=== PATIENT | female | born 1945 | race Caucasian/White ===

== ENCOUNTER 2016-08-29 01:09 | Emergency (ER) | payer OTHER ==
[~2016-08-29] VITALS: Ht 167.6 cm; Wt 113.4 kg
--- NOTE | 2016-08-29 01:28 | NUR ---
PT A/OX4 BREATHING EFFORTLESSLY ON ROOM AIR, PT STATES SHE HAS BEEN HVAING BILATERAL LOWER EXTREMITY SWELLING AND NUMBNESS IN HER FEET AND PAIN IN BOTH OF HER CALVES, PT IS ON THE MONITOR, LAB IN ROOM TO DRAW, IV PLACED, MADE AWARE WILL CONTINUE TO MONITOR.
[2016-08-29 01:48] LABS: BASOPHILS % (AUTO) 0.4 % (0.0-2.0); EOSINOPHILS # (AUTO) 0.1 /CMM (0.0-0.7); EOSINOPHILS % (AUTO) 1.5 % (0.0-6.0); HEMATOCRIT 38 % (33-45); HEMOGLOBIN 12.9 g/dL (11.5-14.8); LYMPHOCYTES # (AUTO) 2.2 /CMM (0.8-4.8); MEAN CORPUSCULAR HEMOGLOBIN 29 PG (26.0-33.0); MEAN CORPUSCULAR HGB CONC 35 g/dl (31.0-36.0); MEAN CORPUSCULAR VOLUME 84 fL (82-100); MONOCYTES # (AUTO) 0.4 /CMM (0.1-1.30); NEUTROPHILS # (AUTO) 5.3 /CMM (1.8-8.9); NEUTROPHILS % (AUTO) 66.1 % (43.0-81.0); PLATELET COUNT (AUTO) 181 /CMM (150-450); RDW COEFFICIENT OF VARIATION 13.7 (11.5-15.0); RED BLOOD CELL COUNT(AUTO) 4.49 MIL/uL (4.0-5.2)
[2016-08-29 02:00] LABS: CALCIUM, SERUM 8.7 mg/dL (8.5-10.1); CARBON DIOXIDE 26 mmol/L (21-32); CHLORIDE 100 mmol/L (98-107); CREATININE 0.8 mg/dL (0.6-1.3); GLUCOSE 259 mg/dL (74-106); POTASSIUM 3.8 mmol/L (3.5-5.1); SODIUM SERUM 136 mmol/L (136-145); UREA NITROGEN, BLOOD 13 mg/dL (7-18)
[2016-08-29 02:08] LABS: TROPONIN I 0.021 ng/mL (0.00-0.056)
[2016-08-29 02:09] LABS: INR 0.91 (0.87-1.13); PROTHROMBIN TIME 9.7 SECS (9.5-12.7)
[2016-08-29 02:13] LABS: ALANINE AMINOTRANSFERASE 21 U/L (12-78); ALBUMIN 3.3 g/dL (3.4-5.0); ALKALINE PHOSPHATASE 81 U/L (46-116); ASPARTATE AMINOTRANSFERASE 15 U/L (15-37); B-TYPE NATRIURETIC PEPTIDE 124 PG/ML (0-125); BILIRUBIN,DIRECT 0.1 mg/dL (0.0-0.2); BILIRUBIN,TOTAL 0.3 mg/dL (0.2-1.0); TOTAL PROTEIN, SERUM 6.8 g/dL (6.4-8.2)
--- NOTE | 2016-08-29 04:04 | NUR ---
Patient discharged to home in stable condition. Written and verbal after care instructions given. Patient verbalizes understanding of instruction.IV removed. Catheter intact and site benign. Pressure and 4x4 applied to site. No bleeding noted.
[2016-08-29 04:05] VITALS: BP 150/97
== END 2016-08-29 04:08 | disposition home or self-care (01) ==
LOC: ER 01:12
DX: R60.0 Localized edema (principal); Z88.6 Allergy status to analgesic agent; J45.909 Unspecified asthma, uncomplicated; Z86.73 Personal history of transient ischemic attack (TIA), and cerebral infarction without residual deficits; Z95.0 Presence of cardiac pacemaker; R20.0 Anesthesia of skin; Z88.2 Allergy status to sulfonamides; Z88.8 Allergy status to other drugs, medicaments and biological substances; Z88.5 Allergy status to narcotic agent; G62.9 Polyneuropathy, unspecified
CPT/HCPCS: 36415; 71010; 80048; 80076; 83605 ×2; 83880; 84484; 85025; 85730; 87040 ×2; 87081; 93005; 93970; 99285; A4606; Z7610

== ENCOUNTER 2018-03-27 13:49 | Inpatient (IN) | payer MEDICARE, OTHER ==
[~2018-03-27] VITALS: Ht 157.5 cm; Wt 122.0 kg
--- NOTE | 2018-03-27 14:18 | NUR ---
PT BIB FRIEND, GLF, FELL FORWARD W/ FACIAL INJURY, NOMAN RIB & KNEE PAIN. -KO, PT IS AAOX4, NOT IN RESPIRATORY DISTRESS, V/S STABLE, KEPT RESTED AND COMFORTABLE.
--- NOTE | 2018-03-27 14:32 | NUR ---
SEEN AND EXAMINED BY DR. PÉREZ.
--- NOTE | 2018-03-27 14:54 | NUR ---
PHLEB AT BEDSIDE FOR BLOOD DRAW.
--- NOTE | 2018-03-27 15:00 | NUR ---
RADIOLOGY AT BEDSIDE FOR XRAY.
[2018-03-27 15:25] LABS: BASOPHILS # (AUTO) 0.1 /CMM (0.0-0.2); BASOPHILS % (AUTO) 0.6 % (0.0-2.0); EOSINOPHILS % (AUTO) 1.3 % (0.0-6.0); HEMATOCRIT 44 % (33-45); HEMOGLOBIN 14.5 g/dL (11.5-14.8); LYMPHOCYTES # (AUTO) 2.6 /CMM (0.8-4.8); LYMPHOCYTES % (AUTO) 27.1 % (20.0-44.0); MEAN CORPUSCULAR HGB CONC 33 g/dl (31.0-36.0); MEAN CORPUSCULAR VOLUME 86 fL (82-100); MONOCYTES # (AUTO) 0.6 /CMM (0.1-1.30); NEUTROPHILS # (AUTO) 6.1 /CMM (1.8-8.9); PLATELET COUNT (AUTO) 194 /CMM (150-450); RED BLOOD CELL COUNT(AUTO) 5.06 MIL/uL (4.0-5.2); WHITE BLOOD COUNT (AUTO) 9.5 K/uL (4.3-11.0)
[2018-03-27 15:29] LABS: ALANINE AMINOTRANSFERASE 21 U/L (12-78); ALBUMIN 3.2 g/dL (3.4-5.0); ALKALINE PHOSPHATASE 86 U/L (46-116); ASPARTATE AMINOTRANSFERASE 17 U/L (15-37); BILIRUBIN,DIRECT 0.1 mg/dL (0.0-0.2); BILIRUBIN,TOTAL 0.3 mg/dL (0.2-1.0); CALCIUM, SERUM 9.6 mg/dL (8.5-10.1); CARBON DIOXIDE 26 mmol/L (21-32); CHLORIDE 104 mmol/L (98-107); CREATININE 0.7 mg/dL (0.6-1.3); GLUCOSE 263 mg/dL (74-106); POTASSIUM 4.2 mmol/L (3.5-5.1); SODIUM SERUM 139 mmol/L (136-145); TOTAL PROTEIN, SERUM 7.1 g/dL (6.4-8.2); UREA NITROGEN, BLOOD 21 mg/dL (7-18)
[2018-03-27 15:49] LABS: APPEARANCE,URINE Clear (CLEAR); BILIRUBIN,URINE Negative (NEGATIVE); BLOOD, URINE Negative Ery/uL (NEGATIVE); COLOR,URINE Yellow (YELLOW); KETONES,URINE Trace (NEGATIVE); LEUKOCYTE ESTERASE ,URINE Negative (NEGATIVE); NITRITE, URINE Negative (NEGATIVE); PROTEIN,URINE 30 mg/dl (NEGATIVE); UGLUCOSE 100 MG/DL mg/dL (NEGATIVE); UROBILINOGEN,URINE 0.2 EU/dL (0.2)
[2018-03-27 15:59] LABS: BACTERIA,URINE 1+ /HPF (None Seen); SQUAMOUS EPITHELIAL CELL,UR Moderate /HPF (None Seen)
[2018-03-27] MEDS ORDERED: IV NS 0.9% 1,000 ML IV PRN (17:10)
[2018-03-27] MEDS ORDERED: CLONIDINE HCL 0.1 MG TABLET ONE (17:29)
[2018-03-27] MEDS ORDERED: MAGNESIUM HYDROXIDE 30 ML UDC PO PRN (17:30)
[2018-03-27] MEDS ORDERED: INSULIN REGULAR, HUMAN 100 UNIT/ML 3 ML VIAL SQ PRN (17:30)
[2018-03-27] MEDS ORDERED: Z GUARD REMEDY 2 OZ OINT TP PRN (17:30)
[2018-03-27] MEDS ORDERED: MAG HYDROX/AL HYDROX/SIMETH 30 ML UDC PO PRN (17:30)
[2018-03-27] MEDS ORDERED: ONDANSETRON HCL/PF 4 MG/2 ML VIAL IVP PRN (17:30)
[2018-03-27] MEDS: BLOOD SUGAR DIAGNOSTIC 1 EACH STRIP VI SCH ×2 (17:30→22:23)
[2018-03-27] MEDS ORDERED: *INSULIN REGULAR(HUMULIN R)HUM 100 UNIT/ML VIAL SQ PRN (17:30)
[2018-03-27] MEDS ORDERED: DEXTROSE 50%-WATER 50 ML DISP.SYRIN IV PRN (17:30)
[2018-03-27] MEDS ORDERED: CLONIDINE HCL 0.1 MG TABLET PO ONE (17:30)
--- NOTE | 2018-03-27 17:48 | NUR ---
PICC LINE NURSE AT BEDSIDE.
--- NOTE | 2018-03-27 17:55 | NUR ---
ADMIT TO 320-1 TELE DX HYPERTENSION, TIA ACCEPTING: [facility] KIM
[2018-03-27 18:07] LABS: THYROID STIMULATING HORMONE 2.362 uIU/mL (0.358-3.74)
--- NOTE | 2018-03-27 18:28 | NUR ---
REPORT GIVEN TO HIGINIO CANSECO FOR MARKUS.
[2018-03-27] MEDS ORDERED: CARV12.52 PO (18:40)
[2018-03-27] MEDS ORDERED: LOSA1TAB39 PO (18:40)
[2018-03-27] MEDS ORDERED: ALBU18HF2 INH (18:40)
[2018-03-27] MEDS ORDERED: METF-442 PO (18:40)
[2018-03-27] MEDS ORDERED: AMLO10TA7 PO (18:40)
[2018-03-27] MEDS ORDERED: SITA100T PO (18:40)
[2018-03-27] MEDS ORDERED: FLUT12AE5 INH (19:02)
--- NOTE | 2018-03-27 19:30 | NUR ---
HIDE AND SKIN FLESHING MACHINE OPERATOR NOTE RECEIVED PT FROM ER, ARRIVED IN [facility]. FOUND PT IN BATHROOM, ASSISTED BY ER STAFF TO TOILET. A/OX4. NO S/S OF RESP DISTRESS, HOWEVER SOB PRESENT UPON EXERTION. PT HELPED BACK INTO BED, GAIT APPEARS WEAK/UNSTABLE. IV ACCESS LOCATED ON LANCE MIDLINE. SKIN APPEARS INTACT, NO PICTURES TAKEN. PT CURRENTLY REFUSING ALL NEEDLESTICK PROCEDURES. ADMISSION ORDERS RECEIVED. SAFETY MEASURES IN PLACE,C ALL LIGHT WITHIN REACH. WILL CONTINUE TO MONITOR.
[2018-03-27 20:00] VITALS: BP 108/87
[2018-03-27 20:47] VITALS: BP 108/87
--- NOTE | 2018-03-27 22:40 | NUR ---
RN NOTE PT CONTINUING TO REFUSE ALL NEEDLESTICK PROCEDURES. REFUSING INSULIN COVERAGE FOR HS ACCUCHECK WITH BS OF 355, NOTIFIED ON-CALL HOSPITALIST. TEACHING PERFORMED REGARDING RISKS OF TX NON-COMPLIANCE, PT VERBALIZES UNDERSTANDING AND CONTINUES TO REFUSE. PT REQUESTING BIPAP FOR SLEEP APNEA, TO BE USED WHEN SLEEPING. PT STATES THAT SHE IS UNAWARE OF WHAT HER BIPAP SETTINGS TYPICALLY ARE. WILL F/U WITH .
--- NOTE | 2018-03-27 23:43 | NUR ---
RN NOTES BIPAP ORDER RECEIVED. BIPAP INITIALIZED BY RT, PT CURRENTLY USING EQUIPMENT IN BED. DENIES PAIN, DISCOMFORT OR SOB. WILL CONTINUE TO MONITOR.
[2018-03-28] VITALS: BP 120/73
--- NOTE | 2018-03-28 01:00 | NUR ---
RN NOTES PT IN BED RESTING. PT HOWEVER HAS REMOVED BIPAP. REFUSE TO REAPPLY MASK DUE TO DISCOMFORT WHEN TRYING TO SLEEP. BIPAP MACHINE REMOVED AND PLACED IN RM 318, RT NOTIFIED. NC AT 3L PLACED ON PT FOR COMFORT. BREATHING UNLABORED, LUNG SOUNDS CLEAR UPON AUSCULTATION. O2 SAT WNL. WILL CONTINUE TO MONITOR.
[2018-03-28 04:00] VITALS: BP 135/70
--- NOTE | 2018-03-28 06:00 | NUR ---
RN CLOSING NOTE PT IN BED RESTING. NO S/S OF RESP DISTRESS/SOB. PT SLEEP TOTAL: 6 HOURS, INTERMITTENT PERIODS AWAKE TO USE BATHROOM. PT EDUCATED ON FALL RISKS AND POTENTIAL OF FALL UPON AMBULATION TO BR, RECOMMENDATION TO STAY IN BED, HOWEVER PT CONTINUES TO INSIST ON BRP. PT CONTINUES TO REFUSE ALL NEEDLESTICK PROCEDURES INCLUDING LABORATORY BLOOD DRAW AND INSULIN ADMIN, HOWEVER COMPLIANT WITH BS CHECK. SAFETY MEASURES IN PLACE, CALL LIGHT WITHIN REACH. WILL ENDORSE TO DAY SHIFT FOR MARKUS.
[2018-03-28] MEDS: BLOOD SUGAR DIAGNOSTIC 1 EACH STRIP VI SCH ×3 (06:47→17:27)
--- NOTE | 2018-03-28 07:40 | NUR ---
MS RN RECEIVED ON BED, AWAKE,ALERT,ORIENTED X4,NOT IN ANY FORM OF DISTRESS,RESPIRATIONS EVEN AND UNLABORED,NO SOB NOTED, LUNGS ARE CLEAR. ABDOMEN SOFT POSITIVE BOWEL SOUNDS, DENIES PAIN AT THIS TIME,ALL NEEDS ATTENDED.
[2018-03-28 08:00] VITALS: BP 156/82
--- NOTE | 2018-03-28 08:10 | NUR ---
MS SYLVESTER BREAKFAST SERVED,TOLERATED WELL, NO DUE MEDS AT THIS TIME.
[2018-03-28] MEDS ORDERED: ASPIRIN EC 325 MG TABLET.DR PO SCH ×2 (09:00)
[2018-03-28 09:13] LABS: BASOPHILS # (AUTO) 0.1 /CMM (0.0-0.2); BASOPHILS % (AUTO) 1.2 % (0.0-2.0); HEMATOCRIT 41 % (33-45); HEMOGLOBIN 13.7 g/dL (11.5-14.8); LYMPHOCYTES # (AUTO) 1.9 /CMM (0.8-4.8); LYMPHOCYTES % (AUTO) 27.3 % (20.0-44.0); MEAN CORPUSCULAR HGB CONC 34 g/dl (31.0-36.0); MEAN CORPUSCULAR VOLUME 87 fL (82-100); MONOCYTES # (AUTO) 0.4 /CMM (0.1-1.30); MONOCYTES % (AUTO) 5.9 % (2.0-12.0); NEUTROPHILS # (AUTO) 4.3 /CMM (1.8-8.9); NEUTROPHILS % (AUTO) 63.6 % (43.0-81.0); PLATELET COUNT (AUTO) 148 /CMM (150-450); RED BLOOD CELL COUNT(AUTO) 4.69 MIL/uL (4.0-5.2); WHITE BLOOD COUNT (AUTO) 6.8 K/uL (4.3-11.0)
--- NOTE | 2018-03-28 10:30 | NUR ---
MS RN WALKS W/ PT,TOLERATED WELL.
--- NOTE | 2018-03-28 12:30 | NUR ---
MS RN BS - 319 - REFUSED COVERAGE, NON COMPLIANT PATIENT.
[2018-03-28 13:15] LABS: CALCIUM, SERUM 9.4 mg/dL (8.5-10.1); CARBON DIOXIDE 25 mmol/L (21-32); CHLORIDE 103 mmol/L (98-107); CREATININE 0.8 mg/dL (0.6-1.3); GLUCOSE 261 mg/dL (74-106); POTASSIUM 4.6 mmol/L (3.5-5.1); SODIUM SERUM 141 mmol/L (136-145); UREA NITROGEN, BLOOD 20 mg/dL (7-18)
[2018-03-28 13:20] LABS: CHOLESTEROL 235 mg/dL (<200); HDL CHOLESTEROL 50 mg/dL (40-60); LDL 148 mg/dL (0-99); TRIGLYCERIDES 206 mg/dL (30-150)
[2018-03-28 16:00] VITALS: BP 149/78
--- NOTE | 2018-03-28 17:38 | NUR ---
MS RN BS - 214 - REFUSED COVERAGE,ALL NEEDS ATTENDED.
--- NOTE | 2018-03-28 18:14 | NUR ---
MS RN WAS SEEN BY DR. MARINELLI, WANTS TO GO AMA.
--- NOTE | 2018-03-28 20:06 | NUR ---
MS/RN NOTES RECEIVED PT. SITTING IN A CHAIR IN THE HALLWAY. PT. IS AWAKE, ALERT AND ORIENTED X3. BREATHING EVEN AND UNLABORED ON ROOM AIR. NO SOB, RESPIRATORY DISTRESS OR COMPLAINTS OF PAIN NOTED AT THIS TIME. PT. REFUSING VITAL SIGNS TO BE TAKEN STATING SHE IS LEAVING AND IS FINE AND IS GOING HOME. PER DAYSHIFT NURSE PT. IS LEAVING AMA. PAPERWORK SIGNED AND PLACED IN PT. CHART. DAYSHIFT NURSE COMPLETED EXIT CARE AND PT. BELONGINGS LIST ORIGINAL PLACED IN CHART AND COPY PROVIDED TO PT. PT. IS AWAITING PICKUP FROM SISTER ALYSSA. HIGINIO AUSTIN REMOVED PT. ID BAND AND PT. RIGHT UPPER ARM MIDLINE. NO BLEEDING OR S/S OF INFECTION NOTED. PT. LEFT THE FLOOR VIA WHEELCHAIR ESCORTED BY FAMILY MEMBERS AND ISAURA LYNCH. ALL PT. BELONGINGS PRESENT WITH PT. PT. LEFT IN STABLE CONDITION AND LEFT THE FLOOR AT 2005.
== END 2018-03-28 20:00 | disposition left against medical advice (07) | DRG 65 ==
LOC: ER 13:51 → TELE 18:32
PROVIDERS: ADMIT Internal Medicine; ATTEND Internal Medicine
PROC: 05H533Z Insertion of Infusion Device into Right Subclavian Vein, Percutaneous Approach (ICD-10-PCS; principal; 2018-03-28)
DX: I63.9 Cerebral infarction, unspecified (principal); Z68.42 Body mass index [BMI] 45.0-49.9, adult; E11.65 Type 2 diabetes mellitus with hyperglycemia; Z88.2 Allergy status to sulfonamides; E66.9 Obesity, unspecified; Z86.73 Personal history of transient ischemic attack (TIA), and cerebral infarction without residual deficits; J45.909 Unspecified asthma, uncomplicated; Z91.19 Patient's noncompliance with other medical treatment and regimen; I10 Essential (primary) hypertension; E78.5 Hyperlipidemia, unspecified; Z79.84 Long term (current) use of oral hypoglycemic drugs; K21.9 Gastro-esophageal reflux disease without esophagitis; I48.91 Unspecified atrial fibrillation; Z91.81 History of falling
CPT/HCPCS: 36415; 36569; 70450-TC; 71045-TC; 72125-TC; 73080-TC; 73090-TC; 73560-TC; 80048-TC; 80061-TC; 80076-TC; 80305; 81000-TC; 82962-TC; 83880; 84443-TC; 84484-TC; 85025-TC; 85652-TC; 85730-TC; 87081-TC; 92521; 92611-TC; 93307-TC; 93880-TC; G0378; J1815; J7030

== ENCOUNTER 2019-11-19 19:49 | Emergency (ER) | payer OTHER ==
[~2019-11-19] VITALS: Ht 157.5 cm; Wt 124.7 kg
[~2019-11-19 19:49] MED LIST: ALBU18HF2 INH; FLUT12AE5 INH
[2019-11-19 20:37] LABS: BASOPHILS # (AUTO) 0.1 /CMM (0.0-0.2); BASOPHILS % (AUTO) 0.6 % (0.0-2.0); EOSINOPHILS % (AUTO) 1.1 % (0.0-6.0); HEMATOCRIT 38 % (33-45); HEMOGLOBIN 12.9 g/dL (11.5-14.8); LYMPHOCYTES # (AUTO) 2.6 /CMM (0.8-4.8); LYMPHOCYTES % (AUTO) 27.4 % (20.0-44.0); MEAN CORPUSCULAR HGB CONC 34 g/dl (31.0-36.0); MEAN CORPUSCULAR VOLUME 87 fL (82-100); MONOCYTES # (AUTO) 0.5 /CMM (0.1-1.30); MONOCYTES % (AUTO) 5.6 % (2.0-12.0); NEUTROPHILS # (AUTO) 6.2 /CMM (1.8-8.9); NEUTROPHILS % (AUTO) 65.3 % (43.0-81.0); PLATELET COUNT (AUTO) 181 /CMM (150-450); RED BLOOD CELL COUNT(AUTO) 4.37 MIL/uL (4.0-5.2); WHITE BLOOD COUNT (AUTO) 9.4 K/uL (4.3-11.0)
[2019-11-19 20:49] LABS: CALCIUM, SERUM 9.7 mg/dL (8.5-10.1); CREATININE 0.8 mg/dL (0.6-1.3); POTASSIUM 4.2 mmol/L (3.5-5.1)
[2019-11-19 22:08] LABS: BILIRUBIN,TOTAL 0.5 mg/dL (0.2-1.0)
[2019-11-19 22:09] LABS: ALBUMIN 3.1 g/dL (3.4-5.0); BILIRUBIN,DIRECT 0.1 mg/dL (0.0-0.2); TOTAL PROTEIN, SERUM 6.9 g/dL (6.4-8.2)
--- NOTE | 2019-11-19 22:13 | NUR ---
PT REFUSES CATH, PT WALKED TO BATHROOM, UNABLE TO PROVIDE URINE SAMPLE AT THIS TIME.
--- NOTE | 2019-11-19 22:17 | NUR ---
CALLED DR ESCALERA, FIELD TRAINING AGENT [phone]. SPEAKING TO STORM WINDOW INSTALLER NOW.
--- NOTE | 2019-11-19 22:35 | NUR ---
CALLED [facility] [phone] AND SPOKE TO MAHIN TO START THE TRANSFER PROCESS. WILL BE IN TOUCH
--- NOTE | 2019-11-19 22:46 | NUR ---
FAXED FACESHEET AND CLINICALS TO [phone]
--- NOTE | 2019-11-19 22:48 | NUR ---
URINE COLLECTED AND SENT TO LAB
[2019-11-19 22:54] LABS: APPEARANCE,URINE Clear (CLEAR); BILIRUBIN,URINE Negative (NEGATIVE); BLOOD, URINE Trace-intact Ery/uL (NEGATIVE); COLOR,URINE Yellow (YELLOW); KETONES,URINE Negative (NEGATIVE); LEUKOCYTE ESTERASE ,URINE Negative (NEGATIVE); NITRITE, URINE Negative (NEGATIVE); PH,URINE 5.5 (5.0-8.0); PROTEIN,URINE Negative (NEGATIVE); UGLUCOSE Negative (NEGATIVE); UROBILINOGEN,URINE 0.2 EU/dL (0.2)
[2019-11-19 23:12] LABS: BACTERIA,URINE Few /HPF (None Seen); RBC,URINE 0-2 /HPF (0-2); SQUAMOUS EPITHELIAL CELL,UR Few /HPF (None Seen); WBC,URINE 0-2 /HPF (0-3)
--- NOTE | 2019-11-19 23:13 | NUR ---
PER MAHIN AT [facility], THERE ARE NO BEDS AVAILABLE, UNABLE TO TRANSFER
[2019-11-19] MEDS ORDERED: CLOPIDOGREL BISULFATE 75 MG TABLET ONE (23:39)
[2019-11-19] MEDS ORDERED: ASPIRIN EC 325 MG TABLET.DR PO ONE (23:39)
--- NOTE | 2019-11-19 23:47 | NUR ---
covid swab sent
[2019-11-19] MEDS ORDERED: ASPIRIN EC 81 MG TABLET.DR PO ONE (23:48)
[2019-11-19] MEDS: CLOPIDOGREL BISULFATE 75 MG TABLET PO ONE (23:52)
[2019-11-19] MEDS: ASPIRIN EC 81 MG TABLET.DR PO ONE (23:52)
--- NOTE | 2019-11-20 00:30 | NUR ---
ER TO CALL DR. VARGAS FOR MD TO REPORT. @ PT ACCEPTED AT [facility] ROOM # 204-A PHONE # FOR REPORT AUTH # FOR TRANSPORT [id number]
--- NOTE | 2019-11-20 00:30 | NUR ---
Nicky nuno in [facility] - 11/20/19 at 0133 by RADHA ASHOK KIM TO CALL DR. VARGAS FOR TO REPORT. @ PT ACCEPTED AT [facility] ROOM # 204-A PHONE # FOR REPORT AUTH # FOR TRANSPORT [id number]
--- NOTE | 2019-11-20 00:49 | NUR ---
CALLED [facility], NO TRIPS AVAIABLE FOR BARIATRIC TRANSPORT BLS/ALS
--- NOTE | 2019-11-20 00:50 | NUR ---
CALLED [facility]. NO AVAILABLE TRIPS
--- NOTE | 2019-11-20 00:50 | NUR ---
PER JERMAINE, 0700AM SOONEST.
[2019-11-20] MEDS ORDERED: hydrALAZINE HCL IV 20 MG VIAL ONE (01:40)
[2019-11-20] MEDS: hydrALAZINE HCL IV 20 MG VIAL IV ONE (01:48)
[2019-11-20 01:57] VITALS: BP 197/81
--- NOTE | 2019-11-20 02:10 | NUR ---
REPORT GIVEN TO TOMAS NURSE AT [facility]. PT LEFT IN STABLE CONDITION WITH [facility]. REPORT GIVEN TO STAFF
== END 2019-11-20 02:35 | disposition short-term general hospital (02) ==
LOC: ER 19:50
DX: R04.2 Hemoptysis (principal); R79.89 Other specified abnormal findings of blood chemistry; R77.8 Other specified abnormalities of plasma proteins; E11.65 Type 2 diabetes mellitus with hyperglycemia; E66.01 Morbid (severe) obesity due to excess calories; Z68.43 Body mass index [BMI] 50.0-59.9, adult; I69.344 Monoplegia of lower limb following cerebral infarction affecting left non-dominant side; K21.9 Gastro-esophageal reflux disease without esophagitis; J45.909 Unspecified asthma, uncomplicated; Z88.6 Allergy status to analgesic agent; Z88.5 Allergy status to narcotic agent; Z88.2 Allergy status to sulfonamides; Z88.8 Allergy status to other drugs, medicaments and biological substances; I48.91 Unspecified atrial fibrillation; G47.30 Sleep apnea, unspecified; Z95.5 Presence of coronary angioplasty implant and graft; I25.10 Atherosclerotic heart disease of native coronary artery without angina pectoris; K59.00 Constipation, unspecified; Z20.828 Contact with and (suspected) exposure to other viral communicable diseases; S40.022A Contusion of left upper arm, initial encounter; X58.XXXA Exposure to other specified factors, initial encounter; Y92.89 Other specified places as the place of occurrence of the external cause
CPT/HCPCS: 36415; 51702; 71045; 80048; 80076; 81001; 83690; 84484; 85025; 85730; 87426; 93005; 96374; 99285; J0360; 81000-TC; C9803-CS